=== PATIENT | female | born 1990 | race African-American/Black ===

== ENCOUNTER 2017-11-16 19:29 | Emergency (ER) | payer OTHER ==
[2017-11-16 19:35] VITALS: RESP 20; O2SAT 100
--- NOTE | 2017-11-16 20:47 | C.PDOC ---
History Of Present Illness 27yo female, brought to ER by EMS for evaluation of right ankle pain after she slipped and fell on ice at 1815 today. Patient states she is unable to bear weight on her leg. She denies any weakness, numbness. She offers no other medical complaints. Time Seen by Provider: 11/16/17 19:57 Chief Complaint (Nursing): Lower Extremity Problem/Injury History Per: Patient History/Exam Limitations: no limitations Onset/Duration Of Symptoms: Hrs Current Symptoms Are (Timing): Still Present - Ankle/Foot Description Of Injury: Fell Currently Unable To: Bear Weight Past Medical History Reviewed: Historical Data, Nursing Documentation, Vital Signs Vital Signs: Last Vital Signs Temp 97.7 F 11/16/17 23:30 Pulse 121 H 11/16/17 23:30 Resp 20 11/16/17 23:30 BP 140/77 11/16/17 23:30 Pulse Ox 100 11/17/17 05:51 - Medical History PMH: Depression Surgical History: No Surg Hx Family History: States: No Known Family Hx - Social History Hx Alcohol Use: No Hx Substance Use: No - Immunization History Hx Tetanus Toxoid Vaccination: No Hx Influenza Vaccination: No Hx Pneumococcal Vaccination: No Review Of Systems Except As Marked, All Systems Reviewed And Found Negative. Musculoskeletal: Positive for: Foot Pain (right ankle pain) Neurological: Negative for: Weakness, Numbness Physical Exam - Physical Exam Appears: Non-toxic, No Acute Distress Skin: Normal Color Head: Atraumatic, Normacephalic Eye(s): bilateral: Normal Inspection Neck: Normal ROM, Supple Chest: Symmetrical Cardiovascular: Rhythm Regular Respiratory: Normal Breath Sounds, No Wheezing Back: No Vertebral Tenderness, No Paraspinal Tenderness Extremity: Normal ROM (full ROM of right ankle), Capillary Refill (< 2 sec), No Deformity, Swelling (moderate swelliong and tenderness to right lateral malleolus) Pulses: Left Dorsalis Pedis: Normal, Right Dorsalis Pedis: Normal Neurological/Psych: Oriented x3, Normal Speech, Normal Motor, Normal Sensation Gait: Steady ED Course And Treatment O2 Sat by Pulse Oximetry: 100 (RA) Pulse Ox Interpretation: Normal - Other Rad ankle, tib/fib Interpretation: (+) Bimalleolar fracture, no dislocation. Mortise is intact. Progress Note: Tylenol PO ordered. XR Right ankle and XR right tib/fib ordered. Medical Decision Making Medical Decision Making: Case was discussed with the bowling floor desk clerk resident who has evaluated the patient at beside. Posterior - U splint applied by the resident. Patient was instructed in crutch walking. Disposition - Disposition Referrals: Sandra Moreau DPM [Staff Provider] - Disposition: HOME/ ROUTINE Disposition Time: 23:30 Condition: GOOD Additional Instructions: Follow up with the Podiatry clinic next week Friday from 12-3. [phone] to make schedule for the clinic. 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 - Scribe Statement The provider has reviewed the documentation as recorded by the Scribe (Suyapa Flores) Provider Attestation: All medical record entries made by the Scribe were at my direction and personally dictated by me. I have reviewed the chart and agree that the record accurately reflects my personal performance of the history, physical exam, medical decision making, and the department course for this patient. I have also personally directed, reviewed, and agree with the discharge instructions and disposition.
--- NOTE | 2017-11-16 22:50 | CP.PCM.CON ---
History of Present Illness - History of Present Illness History of Present Illness: Podiatry Consult Note - Dr. Traore 27 year old female patient seen and evaluated in ED for right ankle pain. Patient hemodynamically stable and NAD. Friend present at bedside. Patient states around 6:30PM this evening, she slipped and fell on ice. Patient's friend immediately called 911 and was brought to ED. Patient currently reports 6/10 pain, however increases to 10/10 pain when pressure is placed on her right ankle. Patient is unable to ambulate on her RLE. No other pedal complaints. Denies N/V/F/D/C/SOB/calf pain. PMHx: none PSH: right eye surgery FH: non-contributory SH: denies ETOH/tobacco/illicit drug use All: NKDA Review of Systems - Review of Systems All systems: reviewed and no additional remarkable complaints except (as per HPI ) Past Patient History - Past Social History Smoking Status: Never Smoked - PSYCHIATRIC Hx Depression: Yes Hx Substance Use: No - SURGICAL HISTORY Hx Surgeries: No Meds Home Medications: Home Medication List Medication Instructions Recorded Confirmed Type Acetaminophen [Tylenol] 325 mg PO Q6 PRN #30 tab 11/16/17 Rx traMADol [Ultram] 50 mg PO Q6 PRN #15 tab 11/16/17 Rx Allergies/Adverse Reactions: Allergies Allergy/AdvReac Type Severity Reaction Status Date / Time No Known Allergies Allergy Unverified 11/16/17 19:35 Physical Exam - Constitutional Appears: Well, Non-toxic, No Acute Distress - Extremities Exam Additional comments: VASC: DP pulses palpable 1/4 b/l. Right PT nonpalpable secondary to edema. Left PT palpable 2/4. CFT <3 seconds to all digits b/l. Temperature gradient cool to cool b/l. Nonpitting edema extends from distal 1/2 of right leg to ankle joint. NEURO: Gross sensation intact. DERM: No open lesions noted. RLE perimalleolar ecchymosis noted. ORTHO: Severe pain on palpation RLE medial and lateral malleoli. Pain upon tibfib compression. No pain on calcaneal squeeze. No pain on palpation ATFL/CFL/ PTFL, styloid process, deltoid ligaments. Absent right ankle joint ROM secondary to guarding. Muscle testing deferred secondary to chief complaint. Patient able to move all digits to right foot. - Neurological Exam Neurological exam: Alert, Oriented x3 - Psychiatric Exam Psychiatric exam: Normal Affect, Normal Mood Results - Vital Signs Recent Vital Signs: Last Vital Signs Temp 98.7 F 11/16/17 19:32 Pulse 120 H 11/16/17 19:32 Resp 20 11/16/17 19:32 BP 113/78 11/16/17 19:32 Pulse Ox 100 11/16/17 20:47 Assessment & Plan - Assessment and Plan (Free Text) Assessment: 27 year old female with right bimalleolar ankle fracture secondary to mechanical fall. Plan: Patient seen and evaluated Discussed with attending, Dr. Traore Afebrile Right ankle XR reviewed: displaced medial and lateral malleolus fx Discussed with patient she will likely need surgical correction of deformities; conservative management may not provide adequate fracture healing. Patient demonstrates verbal understanding Posterior splint applied to RLE -Patient to be NWB RLE with the assistance of crutches Advised patient to keep dressing clean/dry/intact until follow-up appointment Recommend RICE therapy Pain control per ED Patient to follow up with Dr. Traore in office this week Stable per podiatry standpoint Thank you for the consult, please reconsult podiatry as needed
[2017-11-16 23:33] VITALS: BP 140/77; PULSE 121; TEMP 97.7
--- NOTE | 2017-11-17 09:25 | RAD ---
PROCEDURE: Radiographs of the right tibia and fibula. HISTORY: injury to mid tib/fib COMPARISON: None available. TECHNIQUE: Frontal and lateral views obtained. FINDINGS: BONES: Minimally displaced oblique fracture distal fibula. Nondisplaced transverse medial malleolar fracture. JOINT SPACES: Unremarkable. OTHER FINDINGS: None. IMPRESSION: Medial malleolar fracture. Distal fibular fracture. See report of ankle of same date.
--- NOTE | 2017-11-17 09:28 | RAD ---
PROCEDURE: Right Ankle Radiographs. HISTORY: ankle injury, swelling. COMPARISON: Correlation made with the concurrent radiographs of the right tibia and fibula. FINDINGS: BONES: Current study reveals an oblique/ diagonal fracture traversing the distal fibula and a relatively transverse fracture extending through the medial malleolus JOINTS: Ankle mortise maintained. No significant osteoarthritis SOFT TISSUES: Mild soft tissue swelling OTHER FINDINGS: None. IMPRESSION: There are fractures traversing the medial and lateral malleoli with overlying soft tissue swelling as described.
== END 2017-11-16 23:52 | disposition home or self-care (01) ==
LOC: C.ER 19:29
DX: S82.841A Displaced bimalleolar fracture of right lower leg, initial encounter for closed fracture (principal); W00.0XXA Fall on same level due to ice and snow, initial encounter